=== PATIENT | female | born 1975 | race Caucasian/White ===

== ENCOUNTER 2019-02-23 01:51 | Emergency (ER) | payer OTHER ==
[~2019-02-23] VITALS: Ht 154.9 cm; Wt 48.5 kg
[2019-02-23] MEDS ORDERED: [UNRECOGNIZED DRUG - REMARK] (02:01)
== END 2019-02-23 03:12 | disposition home or self-care (01) ==
LOC: ER 01:51
DX: F06.4 Anxiety disorder due to known physiological condition (principal)